=== PATIENT | female | born 1945 | race Caucasian/White ===

== ENCOUNTER 2017-02-19 16:27 | Outpatient (CLI) | payer MEDICARE, OTHER ==
[2013-11-22 04:26] VITALS: BP 124/66
[2017-02-19 16:55] LABS: BASOPHILS % 0.4 (0.0-1.5); EOSINOPHILS % 0.2 % (0.0-6.8); LYMPHOCYTES # 0.7 # k/uL (0.6-4.0); MEAN CORPUSCULAR HEMOGLOBIN 32.4 pg (28.0-34.0); MONOCYTES # 0.2 # k/uL (0.0-0.9); MONOCYTES % 2.8 % (0.0-11.0); NEUTROPHILS # 5.8 # k/uL (1.4-7.7)
[2017-02-19 17:10] LABS: eGFR (African) > 60; eGFR (Non-African) > 60
== END 2017-02-19 16:32 | disposition home or self-care (01) ==
LOC: RAD 16:27
PROVIDERS: ATTEND Family Medicine
DX: R07.89 Other chest pain (principal)
CPT/HCPCS: 36415; 80053; 84484; 85025

== ENCOUNTER 2017-02-20 13:02 | Outpatient (CLI) | payer MEDICARE, OTHER ==
[2013-11-22 04:26] VITALS: BP 124/66
== END 2017-02-20 13:03 ==
LOC: CARD 13:02
PROVIDERS: ATTEND Internal Medicine Cardiovascular Disease
DX: R07.9 Chest pain, unspecified (principal)
CPT/HCPCS: 93350; G0463

== ENCOUNTER 2018-04-17 10:08 | Outpatient (CLI) | payer MEDICARE, OTHER ==
[2013-11-22 04:26] VITALS: BP 124/66
[2018-04-17 10:22] LABS: MEAN CORPUSCULAR HEMOGLOBIN 30.8 pg (28.0-34.0); MEAN CORPUSCULAR VOLUME 95.4 fl (80.0-100.0)
[2018-04-17 10:50] LABS: eGFR (African) > 60; eGFR (Non-African) > 60
== END 2018-04-17 10:10 ==
LOC: LAB 10:08
PROVIDERS: ATTEND Family Medicine
DX: E78.5 Hyperlipidemia, unspecified (principal); R42 Dizziness and giddiness
CPT/HCPCS: 36415; 80053; 80061; 85027

== ENCOUNTER 2018-10-22 13:55 | Outpatient (CLI) | payer MEDICARE, OTHER ==
[2013-11-22 04:26] VITALS: BP 124/66
[2018-10-22 14:52] LABS: BASOPHILS % 0.2 (0.0-1.5); EOSINOPHILS % 0.9 % (0.0-6.8); MEAN CORPUSCULAR HEMOGLOBIN 30.5 pg (28.0-34.0); MONOCYTES % 3.6 % (0.0-11.0); NEUTROPHILS # 8.2 # k/uL (1.4-7.7)
--- NOTE | 2018-10-22 16:47 | Diagnostic Imaging Report ---
GIOVANNY ROLDAN [facility] [address] [facility] [address] [place], [place]. [address] Report Submission Date: Oct 22, 2018 3:51:50 PM TRANSPLANT SURGEON Patient Study Name: PRATIBHA HERNANDEZ Date: Oct 22, 2018 3:00:15 PM TRANSPLANT SURGEON Modality Type: CT Gender: F Description: CT ABD PELVIS W/ CON : 45 Institution: [facility] Physician: GIOVANNY ROLDAN Examination: CT Abdomen/pelvis History: LLQ PAIN X 3 DAYS. HX OF DIVERTICULITIS. RECENT HYSTERECTOMY Comparison exams: None available Technique: CT Abdomen/pelvis without IV protocol. Findings: Liver, spleen, adrenals, pancreas, kidneys and gallbladder are without gross irregularity given exam technique. No gallstone. No suspicious renal calcifications. Ureters are nondilated in their course through the abdomen and pelvis. No central calcifications. Bladder margin within normal limits. Abdominal aorta without aneurysm. Peripheral atherosclerotic disease. Cardiac silhouette is not enlarged. No pericardial effusion. Few scattered prominent loops of small bowel with air-fluid levels. Stool within the large bowel limiting sensitivity. Lower pelvic stranding. No formed fluid collection. Numerous sigmoid diverticula. Osseous structures demonstrate degenerative changes. Lung bases without infiltrate. Few emphysematous blebs. No effusion. Impression: No acute upper abdominal organ inflammatory process. Few prominent loops of small bowel with air-fluid levels - enteritides. Sigmoid diverticula. Lower pelvic mesenteric stranding: could represent sequela from patient's recent hysterectomy however an infectious/inflammatory process cannot be excluded. No formed fluid collection to suggest abscess at this time. No gallstone. No suspicious renal calcifications or abnormal ureteric dilation. No lung base consolidation or effusion. Electronically signed on Oct 22, 2018 3:51:50 PM TRANSPLANT SURGEON by: Isaías BROWN
== END 2018-10-22 13:56 ==
LOC: RAD 13:55
PROVIDERS: ATTEND Physician Assistant
DX: R10.30 Lower abdominal pain, unspecified (principal); Z87.19 Personal history of other diseases of the digestive system; Z90.710 Acquired absence of both cervix and uterus
CPT/HCPCS: 36415; 74177; 80053; 85025; Q9967

== ENCOUNTER 2018-10-29 08:36 | Outpatient (CLI) | payer MEDICARE, OTHER ==
[2013-11-22 04:26] VITALS: BP 124/66
[2018-10-29 08:54] LABS: BASOPHILS % 0.3 (0.0-1.5); EOSINOPHILS % 1.9 % (0.0-6.8); MEAN CORPUSCULAR HEMOGLOBIN 30.9 pg (28.0-34.0); MONOCYTES % 11.2 % (0.0-11.0); NEUTROPHILS # 3.9 # k/uL (1.4-7.7)
== END 2018-10-29 08:38 ==
LOC: LAB 08:36
PROVIDERS: ATTEND Physician Assistant
DX: D64.9 Anemia, unspecified (principal)
CPT/HCPCS: 36415; 85025

== ENCOUNTER 2019-03-12 07:50 | Outpatient (CLI) | payer MEDICARE, OTHER ==
[2013-11-22 04:26] VITALS: BP 124/66
--- NOTE | 2019-03-12 09:47 | Diagnostic Imaging Report ---
JENNIFER SANON [facility] [address] [facility].[address] [address] Report Submission Date: Mar 12, 2019 9:12:22 AM CDT Patient Study Name: PRATIBHA HERNANDEZ Date: Mar 12, 2019 8:04:21 AM CDT Modality Type: US Gender: F Description: US EXTREMITY VEINS UNILAT : 45 Institution: [facility] Physician: JENNIFER SANON Examination: Ultrasound right vein History: R leg pain and swelling Findings: Sonographic evaluation of the right lower extremity venous system from the groin to the popliteal fossa inclusive. Normal compressibility. No luminal filling defect. Normal waveforms and response to augmentation. No popliteal region fluid collection. Impression: No evidence for deep venous thrombosis. Electronically signed on Mar 12, 2019 9:12:22 AM CDT by: Isaías BROWN
== END 2019-03-12 07:52 ==
LOC: RAD 07:50
PROVIDERS: ATTEND Family Medicine
DX: M79.604 Pain in right leg (principal)
CPT/HCPCS: 93971

== ENCOUNTER 2019-12-01 09:01 | Outpatient (CLI) | payer MEDICARE, OTHER ==
[2013-11-22 04:26] VITALS: BP 124/66
--- NOTE | 2019-12-02 13:20 | Diagnostic Imaging Report ---
[facility] [address] [address] [facility] [address] PATIENT NAME: PRATIBHA HERNANDEZ : 1945 DOS: 12/01/2019 REFERRING PHYSICIAN: JENNIFER SANON EXAMINATION: DEXA DUAL ENERGY X-RAY ABSORPTIOMETRY (DXA) A DXA scan was performed on December 01, 2019 using a [employer] densitometer. IMPRESSION: Based on BMD diagnosis is consistent with normal bone density (based on WHO criteria). Fracture risk is low. Follow-up exam recommended November 2021. INDICATION: Chronic steroid use. Technical Quality: Diagnostic RESULTS: Lumbar Spine The BMD measured in the L1-L4 region is 1.245 g/cm T-score 0.5 Total Hip The BMD measured at the bilateral total proximal femur is 1.013 g/cm2 T-score 0.0 Interval Change: Today's examination is compared to the technically similar prior study from April 19, 2016. In the interim, there has been increase of 0.068 g/cm2, 5.8% at the lumbar spine, and decrease of - 0.048 g/cm2, -4.4% at the right total femur. The average results represent relative stability in the interval. Dr. Maury Da Silva Electronically signed on: 12/02/2019 1:49:31 AM STEPHANIE
== END 2019-12-01 09:11 ==
LOC: RAD 09:01
PROVIDERS: ATTEND Family Medicine
DX: I10 Essential (primary) hypertension (principal); E78.5 Hyperlipidemia, unspecified; Z79.52 Long term (current) use of systemic steroids
CPT/HCPCS: 36415; 77080; 80053; 80061; 85025